=== PATIENT | female | born 1980 | race African-American/Black ===

== ENCOUNTER 2019-03-31 20:52 | Inpatient (IN) | payer MEDICAID ==
[~2019-03-31] VITALS: Ht 167.6 cm; Wt 73.4 kg
[2019-03-31 21:06] VITALS: Ht 167.6 cm; Wt 73.4 kg
[2019-03-31] MEDS ORDERED: ACETAMINOPHEN 500 MG TAB PO STA (22:05)
[2019-03-31] MEDS ORDERED: morphine 4 MG/ML VIAL IV STA (23:30)
[2019-03-31] MEDS ORDERED: SOD CHLORIDE 0.9% 1,000 ML IV ONE (23:30)
[2019-03-31] MEDS ORDERED: ONDANSETRON 4 MG INJ IV STA (23:30)
[2019-04-01] MEDS ORDERED: CEFTRIAXONE 1 GM/50 ML (PMX) 50 ML IVPB ONE
[2019-04-01] MEDS ORDERED: ONDANSETRON 4 MG INJ IV PRN (01:00)
[2019-04-01] MEDS ORDERED: morphine 4 MG/ML VIAL IV PRN (01:00)
[2019-04-01] MEDS: SOD CHLORIDE 0.9% 1,000 ML IV SCH ×2 (01:18→09:34)
[2019-04-01 08:00] VITALS: BP 102/64; PULSE 73; RESP 18
[2019-04-01 14:27] VITALS: BP 105/64; PULSE 87; RESP 18
== END 2019-04-01 15:15 | disposition home or self-care (01) | DRG 779 ==
LOC: FTE 20:52 → MS1 04-01 00:54
PROVIDERS: ADMIT Obstetrics & Gynecology; ATTEND Obstetrics & Gynecology
DX: O03.6 Delayed or excessive hemorrhage following complete or unspecified spontaneous abortion (principal)
CPT/HCPCS: 36415; 76801; 76817; 80053; 81001; 82150; 83690; 84702; 85025; 85610; 85730; 86850; 86900; 86901; 87086; 88305; 96374; 96375; J0696; J2270; J2405; J7030